=== PATIENT | female | born 1965 | race Caucasian/White ===

== ENCOUNTER 2020-05-30 10:45 | Emergency (ER) | payer BC, SELFPAY ==
[2020-05-30 10:51] VITALS: BP 163/100; PULSE 108; RESP 18; TEMP 37.1; O2SAT 98
[2020-05-30 11:02] VITALS: BP 138/90; PULSE 91; RESP 18; O2SAT 98
[2020-05-30 11:22] LABS: Alanine Aminotransferase 16 U/L (4-35); Albumin Level 4.6 g/dL (3.5-5.1); Alkaline Phosphatase 80 U/L (38-126); Aspartate Amino Transferase 26 U/L (14-36); Bilirubin,Total 0.7 mg/dL (0.2-1.3); Blood Urea Nitrogen 7 mg/dL (7-17); Calcium 9.6 mg/dL (8.4-10.2); Carbon Dioxide 28 mmol/L (22-30); Chloride 95 mmol/L (98-107); Estimated CRCL calculation 93 ml/min; Estimated Glomerular Filt Rate > 60; Glucose 124 mg/dL (65-105); Lipase 138 U/L (23-300); Potassium 3.8 mmol/L (3.4-5.0); Sodium 133 mmol/L (137-145)
[2020-05-30 11:24] LABS: Basophils Percent Auto 0.3 % (0.2-1.2); Eosinophils Absolute Auto 0.1 K/mm3 (0-0.3); Eosinophils Percent Auto 0.8 % (0-4.4); Hematocrit 40.2 % (37.0-47.0); Hemoglobin 14.2 g/dL (12.0-15.0); Immature Granulocyte Absolute 0.04 K/mm3 (0.00-0.031); Immature Granulocyte Percent A 0.3 % (0-0.5); Lymphocytes Absolute Auto 1.61 K/mm3 (0.9-3.2); Lymphocytes Percent Auto 13.5 % (18.3-44.2); Mean Corpuscular HGB Conc 35.3 g/dl (32-36); Mean Corpuscular Hemoglobin 32.6 pg (26-34); Mean Corpuscular Volume 92.4 fl (80-100); Mean Platelet Volume 9.8 fl (7.4-10.4); Monocytes Absolute Auto 0.9 K/mm3 (0.1-0.6); Monocytes Percent Auto 7.8 % (2.6-8.5); Neutrophils Absolute Auto 9.2 K/mm3 (1.3-6.7); Neutrophils Percent Auto 77.3 % (45.5-73.1); Platelet Count Result 289 k/mm3 (150-375); Red Blood Count 4.35 M/mm3 (4.2-5.4); Red Cell Distribution Width 11.1 % (11.5-14.5); White Blood Count 11.9 K/mm3 (4.5-10.0)
[2020-05-30] MEDS: LIDOCAINE HCL 2% VISC SOLN 15 ML UDC 20 ML PO (11:24)
[2020-05-30 11:25] LABS: Add Urine Microscopic? YES; Appearance Urine Clear (Clear); Bacteria Urine Trace /hpf; Bilirubin Urine Negative (Negative); Blood Urine 2+ (Negative); Color Urine Yellow (Yellow); Glucose Urine UA Negative (Negative); Ketones Urine 2+ mg/dL (Negative); Leukocyte Esterase Ur Trace LEU/UL (Negative); Mucus Urine Rare /lpf; Nitrate Urine Negative (Negative); Protein Urine Negative (Negative); Specific Grav Ur 1.015 (1.001-1.035); Squamous Epithelial Cell Urine Occasional /hpf (Few); Urobilinogen Urine Negative mg/dL (<2.0)
[2020-05-30] MEDS: MAG HYDROX/AL HYDROX/SIMETH 30 ML UDC PO (11:25)
[2020-05-30] MEDS: FAMOTIDINE 20 MG/2 ML VIAL IV PUSH (11:25)
[2020-05-30] MEDS: SODIUM CHLORIDE 0.9% IV 1,000 ML 999 ML IV CONT (11:25)
[2020-05-30] MEDS: ONDANSETRON INJ 4 MG/2 ML VIAL IV PUSH (11:25)
[2020-05-30 11:28] VITALS: BP 138/90; PULSE 94; RESP 18; O2SAT 98
--- NOTE | 2020-05-30 12:41 | ED.ABDPAIN ---
HPI - Abdominal Pain General Chief Complaint: Abdominal Pain <Landon Byod PA-C - Last Filed: 05/30/20 12:48> Stated Complaint: abd pain <Landon Boyd PA-C - Last Filed: 05/30/20 12:48> Time Seen by Provider: 05/30/20 10:47 <Landon Boyd PA-C - Last Filed: 05/30/20 12:48> Source: patient <Landon Boyd PA-C - Last Filed: 05/30/20 12:48> Mode of arrival: ambulatory <DAO Solano Last Filed: 05/30/20 12:48> Limitations: no limitations <Landon Boyd PA-C - Last Filed: 05/30/20 12:48> History of Present Illness HPI narrative: Patient is a 55-year-old female who presents to emergency department for evaluation of generalized abdominal pain that is been present for the last 7 days can started in the epigastrium and is now extended down into the remainder of the abdomen patient denies vomiting diarrhea rectal bleeding or melena. Patient in the room in no distress. <Landon Boyd PA-C - Last Filed: 05/30/20 12:48> Related Data Home Medications: Home Medications Medication Instructions Recorded Confirmed conj estrog-medroxyprogest darwin 1 tablet PO DAILY 05/30/20 [Prempro] <Landon Boyd PA-C - Last Filed: 05/30/20 12:48> Allergies/Adverse Reactions: Allergies Allergy/AdvReac Type Severity Reaction Status Date / Time No Known Allergies Allergy Unverified 07/25/17 07:59 <Landon Boyd PA-C - Last Filed: 05/30/20 12:48> Review of Systems Review of Systems: All systems reviewed & are unremarkable except as noted in HPI and below <Landon Boyd PA-C - Last Filed: 05/30/20 12:48> [facility] Social History Social History: Social History Smoking status: Never smoker Second hand tobacco smoke exposure: No Alcohol intake: current Gender identity (if verbalized by the patient): Female <DAO Solano Last Filed: 05/30/20 12:48> Exam Narrative: Exam Narrative: GENERAL: Well-appearing, well-nourished, and in no acute distress. HEAD: Normocephalic, atraumatic. EYES: PERRLA and EOMI. ENT: Nares clear, no rhinorrhea or epistaxis. Mucous membranes moist. CHEST: Clear to auscultation. No respiratory distress. No wheezes rales or rhonchi HEART: Regular rate and rhythm. No murmur heard. EXTREMITIES: Normal range of motion. No edema. SKIN: Warm, dry, no rash. NEURO: No focal deficits. Alert and oriented x3. PSYCH: Normal mood and affect. <DAO Solano Last Filed: 05/30/20 12:48> Course Course Emergency Course: Patient in the room in no distress aware of case findings treatment plan and diagnosis agreeing to follow-up as instructed with primary care and provided GI referral was given fluids and medications in the emergency department noting that her pain is much better at this time. <DAO Solano Last Filed: 05/30/20 12:48> Vital Signs Vital signs: Vital Signs Temperature 98.8 F 05/30/20 10:51 Pulse Rate 108 H 05/30/20 10:51 Respiratory Rate 18 05/30/20 10:51 Blood Pressure 163/100 H 05/30/20 10:51 Pulse Oximetry 98 05/30/20 10:51 Temperature 98.8 F 05/30/20 10:51 Pulse Rate 78 05/30/20 13:06 Respiratory Rate 18 05/30/20 13:06 Blood Pressure 133/75 05/30/20 13:06 Pulse Oximetry 100 05/30/20 13:06 <DAO Solano Last Filed: 05/30/20 12:48> Vital Signs Temperature 98.8 F 05/30/20 10:51 Pulse Rate 108 H 05/30/20 10:51 Respiratory Rate 18 05/30/20 10:51 Blood Pressure 163/100 H 05/30/20 10:51 Pulse Oximetry 98 05/30/20 10:51 Temperature 98.8 F 05/30/20 10:51 Pulse Rate 78 05/30/20 13:06 Respiratory Rate 18 05/30/20 13:06 Blood Pressure 133/75 05/30/20 13:06 Pulse Oximetry 100 05/30/20 13:06 <Tegan Pan MD - Last Filed: 05/30/20 17:16> MDM - Abdominal Pain MDM Narrative Medical decision making na
[2020-05-30 13:06] VITALS: BP 133/75; PULSE 78; RESP 18; O2SAT 100
== END 2020-05-30 13:06 | disposition home or self-care (01) ==
PROVIDERS: Emergency Provider General Practice; PCP Internal Medicine
DX: R10.84 Generalized abdominal pain (principal)
CPT/HCPCS: 36415; 80053; 81001; 81025; 83690; 85025; 96361; 96374; 96375; 99284; A9270; J0131; J2405; J7030

== ENCOUNTER → 2020-06-13 10:11 | Outpatient (CLI) | payer BC, SELFPAY ==
--- NOTE | ~2020-06-13 | US_ITS ---
US abdomen complete DATE: 06/13/2020 10:41 INDICATION: Epigastric and right upper quadrant abdominal pain TECHNIQUE: Real-time imaging of the complete abdomen. Doppler analysis. COMPARISON: None FINDINGS: Hepatic cysts measuring up to 9 mm and 13 mm are noted. Otherwise no hepatic or pancreatic space-occupying mass lesion is evident. Normal hepatic portal venous flow direction. There is sludge and there are up to 10 mm echogenic filling defects with shadowing in the gallbladder lumen, consistent with cholelithiasis. There is borderline gallbladder wall thickening. No perichole cystic fluid is evident. Negative sonographic Pham's sign. The common bile duct measures 4 mm, within normal range. No renal space occupying mass lesion or hydronephrosis is evident. Normal splenic size. Normal caliber of the abdominal aorta. The inferior vena cava is unremarkable. IMPRESSION: Cholelithiasis, gallbladder sludge Hepatic cysts Reviewed, dictated and finalized at Location A. Reviewed, dictated and finalized at location B.
== END ==
PROVIDERS: Visit Provider Internal Medicine
DX: R10.13 Epigastric pain (principal); K80.20 Calculus of gallbladder without cholecystitis without obstruction; K76.89 Other specified diseases of liver
CPT/HCPCS: 76700

== ENCOUNTER → 2021-03-09 14:46 | Outpatient (CLI) | payer BC, SELFPAY ==
--- NOTE | ~2021-03-09 | US_ITS ---
EXAMINATION: US transvaginal DATE: 03/09/2021 15:14 INDICATION: Postmenopausal bleeding TECHNIQUE: Multiple transabdominal and endovaginal sonographic images of the pelvis were obtained. COMPARISON: None. FINDINGS: The uterus measures 7.1 x 3.2 x 3.9 cm. The endometrial complex measures 3 mm in thickness but with heterogeneous echogenicity with several small echogenic foci at the fundus. 1.4 cm heterogeneously hy poechoic lesion at the fundus which could represent a uterine fibroid. The right ovary measures 1.5 x 1.1 x 1.0 cm. The left ovary measures 1.2 x 1.0 x 1.3 cm. There is normal vascular flow in the ovari es. There is no free fluid in the pelvis. IMPRESSION: 1. Endometrial complex normal in thickness measuring 3 mm but with heterogeneous appearance with shanta ral echogenic foci at the fundus. Given the heterogeneous appearance and provided history of postmeno pausal bleeding would consider hysteroscopy and endometrial biopsy for further evaluation. 2. 1.4 cm heterogeneously hypoechoic lesion at the uterine fundus most likely a uterine fibroid. Reviewed, dictated and finalized at location A. IMPRESSION: 1. Endometrial complex normal in thickness measuring 3 mm but with heterogeneou s appearance with several echogenic foci at the fundus. Given the heterogeneous appearance and provided history of postmenopausal bleeding would consider hyst eroscopy and endometrial biopsy for further evaluation. 2. 1.4 cm heterogeneously hypoechoic lesion at the uterine fundus most likely a uterine fibroid.
== END ==
PROVIDERS: Visit Provider Nurse Practitioner
DX: N95.0 Postmenopausal bleeding (principal)
CPT/HCPCS: 76830

== ENCOUNTER → 2021-05-03 12:10 | Outpatient (CLI) | payer BC, SELFPAY ==
--- NOTE | ~2021-05-03 | MM_ITS ---
EXAMINATION: MM screening [facility] BI w johana HISTORY: Screening mammogram TECHNIQUE: Craniocaudal and mediolateral oblique 3-D tomosynthesis images were obtained and synthetic 2-D images were generated. CAD analysis was submitted and interpreted. COMPARISON: 07/22/2019, 06/12/2018, 05/15/2017 bilateral digital screening mammogram examinations BREAST PARENCHYMAL COMPOSITION: There are scattered areas of fibroglandular density. FINDINGS: Right breast: There is asymmetry in the anterior inner mid right breast. Diagnostic right mammogram and right breas t ultrasound examination are recommended. Left breast: There is no evidence of suspicious mass, calcification, or architectural distortion to suggest malig jannet. There has been no suspicious interval change. IMPRESSION: 1. Right breast mammographic asymmetry 2. Diagnostic right mammogram and right breast ultrasound examination are recommended. BI-RADS Category 0: Incomplete: Needs additional imaging evaluation. Reviewed, dictated and finalized at location A. IMPRESSION: 1. Right breast mammographic asymmetry 2. Diagnostic right mammogram and right breast ultrasound examination are recom mended. BI-RADS Category 0: Incomplete: Needs additional imaging evaluation.
--- NOTE | ~2021-05-03 | DEXA_ITS ---
Bone Density Report Name: Julita Mckeon Age: 56 Sex: Female Ethnicity: White Date of : 1965 Indication: postmenopausal; screening for osteoporosis; parental hip fracture; height loss; Referring Provider: PRICILLA, OTIS Study: Bone densitometry was performed. Exam Date: May 03, 2021 Accession number: [id number] Bone Density: Region BMD T-score Z-score Classification AP Spine (L1-L4) 1.010 -0.3 0.7 Normal Femoral Neck (Left) 0.733 -1.0 0.0 Normal Total Hip (Left) 0.909 -0.3 0.4 Normal Femoral Neck (Right) 0.791 -0.5 0.5 Normal Total Hip (Right) 0.937 0.0 0.6 Normal Total Hip Mean 0.923 -0.2 0.5 Normal World Health Organization criteria for BMD impression classify patients as: Normal (T-score at or above -1.0), Osteopenia (T-score between -1.0 and -2.5), or Osteoporosis (T-score at or below -2.5). 10-year Fracture Risk: FRAX not reported because: All T-scores for Spine Total, Hip Total, Femoral Neck at or above -1.0 Treated for osteoporosis Clinical Information Provided by Patient: Parent has had a hip fracture Is being treated for osteoporosis Has used the following medications: HRT (i.e. estrogen/hormone therapy) Patient maximum height was 67.5 Menopause Age: 55 Drinks caffeinated beverages Onset of menses at age 15 Number of children 0 Impression: The patient has normal bone mass. The patient has risk factors, including: parental hip fracture. Discussion: It is important to ask patients whether they are taking their medications and to encourage continued and appropriate compliance with their osteoporosis therapies to reduce fracture risk. It is also important to review their risk factors and encourage appropriate calcium and vitamin D intakes, exercise, fall prevention and other lifestyle measures. Follow-Up: Consider a repeat BMD and Vertebral Fracture Assessment (VFA) exam in 2 years or sooner if medically necessary, to reassess this patient's status. Reported by: DONG on 05/03/2021 12:40:00 PM. Reviewed, dictated and finalized at location AMyrna GARCIA
== END ==
PROVIDERS: Visit Provider Nurse Practitioner
DX: Z12.31 Encounter for screening mammogram for malignant neoplasm of breast (principal); Z78.0 Asymptomatic menopausal state; R92.8 Other abnormal and inconclusive findings on diagnostic imaging of breast
CPT/HCPCS: 77063; 77067; 77080

== ENCOUNTER → 2021-06-01 09:17 | Outpatient (CLI) | payer BC, SELFPAY ==
--- NOTE | ~2021-06-01 | MMUS_ITS ---
EXAMINATION: MM diagnostic mammo unilat RT, US breast RT limited HISTORY: Follow-up right breast asymmetries TECHNIQUE: Additional 3-D tomosynthesis images of the right breast were performed and synthetic 2-D i mages were generated. CAD analysis was submitted and interpreted. High resolution Limited right breas t ultrasound was performed. COMPARISON: 05/03/2021 BREAST PARENCHYMAL COMPOSITION: Breast composed of scattered areas of fibroglandular density. FINDINGS: MAMMOGRAPHIC FINDINGS: No discrete mass, architectural distortion or suspicious calcifications are identified with spot comp ression or mediolateral views. ULTRASOUND: Limited right periareolar ultrasound: Normal heterogeneous echotexture without focal solid or cystic mass. There are mildly prominent ducts. IMPRESSION: 1. No evidence for malignancy in the right breast. 2. Routine yearly screening mammogram and regular clinical breast examination are recommended. BI-RADS Category 1: Negative Reviewed, dictated and finalized at location A. IMPRESSION: 1. No evidence for malignancy in the right breast. 2. Routine yearly screening mammogram and regular clinical breast examination a re recommended. BI-RADS Category 1: Negative
== END ==
PROVIDERS: Visit Provider Obstetrics & Gynecology Gynecology
DX: R92.8 Other abnormal and inconclusive findings on diagnostic imaging of breast (principal)
CPT/HCPCS: 76642; 77065

== ENCOUNTER 2022-06-20 09:43 | Outpatient (CLI) | payer BC, SELFPAY ==
[2022-06-20 19:56] LABS: Alanine Aminotransferase 19 U/L (6-35); Albumin Level 4.5 g/dL (3.5-5.1); Alkaline Phosphatase 82 U/L (38-126); Anion Gap 10 mmol/L (8-16); Aspartate Amino Transferase 40 U/L (14-36); Bilirubin,Total 0.5 mg/dL (0.2-1.3); Blood Urea Nitrogen 12 mg/dL (7-17); Calcium 9.8 mg/dL (8.4-10.2); Carbon Dioxide 29 mmol/L (22-30); Chloride 99 mmol/L (98-107); Cholesterol 218 mg/dL (0-200); Estimated Glomerular Filt Rate > 60; Glucose 95 mg/dL (65-110); HDL Direct 77 mg/dL; Sodium 138 mmol/L (137-145); Triglycerides 71 mg/dL (<150)
[2022-06-20 20:07] LABS: LDL Cholesterol Direct 98 mg/dL
== END 2022-06-20 09:44 | disposition home or self-care (01) ==
LOC: ANHGOSHLAB 09:46
PROVIDERS: PCP Family Medicine; Visit Provider Family Medicine
DX: Z13.29 Encounter for screening for other suspected endocrine disorder (principal); Z13.220 Encounter for screening for lipoid disorders; I10 Essential (primary) hypertension
CPT/HCPCS: 36415; 80053; 80061; 84443

== ENCOUNTER → 2023-02-25 15:38 | Outpatient (CLI) | payer BC, SELFPAY ==
--- NOTE | ~2023-02-25 | XR_ITS ---
XR knee LT min 4V 02/25/2023 15:55 Indication: Left knee pain Procedure: 4 views left knee Comparison: No prior studies for comparison. Findings: There is anatomic alignment. Mild osteoarthritis. No fracture, subluxation or dislocation. No significant joint effusion. Impression: 1: Mild osteoarthritis of the left knee. Reviewed, dictated and finalized at location A. Impression: 1: Mild osteoarthritis of the left knee.
== END ==
PROVIDERS: PCP Family Medicine; Visit Provider Family Medicine
DX: M25.562 Pain in left knee (principal); M17.12 Unilateral primary osteoarthritis, left knee
CPT/HCPCS: 73564

== ENCOUNTER → 2023-05-28 14:48 | Outpatient (CLI) | payer BC, SELFPAY ==
--- NOTE | ~2023-05-28 | MM_ITS ---
EXAMINATION: MM screening [facility] BI w johana HISTORY: Screening TECHNIQUE: Craniocaudal and mediolateral oblique 3-D tomosynthesis images were obtained and synthetic 2-D images were generated. CAD analysis was submitted and interpreted. COMPARISON: Comparison to multiple prior studies sequentially, with oldest reviewed study dated 04/25. BREAST PARENCHYMAL COMPOSITION: Breast composed of scattered areas of fibroglandular density FINDINGS: There is no evidence of suspicious mass, calcification, or architectural distortion to sugg est malignancy in either breast. There has been no suspicious interval change. IMPRESSION: 1. No mammographic evidence of malignancy. 2. Recommend routine screening mammography in one year. BI-RADS Category 1: Negative Reviewed, dictated and finalized at location A.
== END ==
PROVIDERS: PCP Obstetrics & Gynecology Gynecology; Visit Provider Obstetrics & Gynecology Gynecology
DX: Z12.31 Encounter for screening mammogram for malignant neoplasm of breast (principal)
CPT/HCPCS: 77063; 77067

== ENCOUNTER 2023-07-11 10:38 | Outpatient (CLI) | payer BC, SELFPAY ==
[2023-07-11 19:50] LABS: Alanine Aminotransferase 24 U/L (6-35); Albumin Level 4.5 g/dL (3.5-5.1); Alkaline Phosphatase 88 U/L (38-126); Anion Gap 10 mmol/L (8-16); Aspartate Amino Transferase 41 U/L (14-36); Bilirubin,Total 0.7 mg/dL (0.2-1.3); Blood Urea Nitrogen 11 mg/dL (7-17); Calcium 9.7 mg/dL (8.4-10.2); Carbon Dioxide 30 mmol/L (22-30); Chloride 100 mmol/L (98-107); Cholesterol 233 mg/dL (0-200); Estimated Glomerular Filt Rate > 60; Glucose 97 mg/dL (65-110); HDL Direct 78 mg/dL; Potassium 4.2 mmol/L (3.4-5.0); Sodium 140 mmol/L (137-145); Triglycerides 80 mg/dL (<150)
[2023-07-11 20:00] LABS: LDL Cholesterol Direct 118 mg/dL
== END 2023-07-11 10:39 | disposition home or self-care (01) ==
LOC: ANHGOSHLAB 10:40
PROVIDERS: PCP Family Medicine; Visit Provider Family Medicine
DX: Z13.228 Encounter for screening for other metabolic disorders (principal); Z13.220 Encounter for screening for lipoid disorders; Z00.00 Encounter for general adult medical examination without abnormal findings
CPT/HCPCS: 36415; 80053; 80061

== ENCOUNTER 2024-07-17 09:43 | Outpatient (CLI) | payer BC, SELFPAY ==
[2024-07-17 15:07] LABS: Alanine Aminotransferase 24 U/L (6-35); Albumin Level 4.5 g/dL (3.5-5.1); Alkaline Phosphatase 86 U/L (38-126); Anion Gap 8 mmol/L (4-12); Aspartate Amino Transferase 49 U/L (14-36); Bilirubin,Total 0.6 mg/dL (0.2-1.3); Blood Urea Nitrogen 15 mg/dL (7-17); Calcium 9.4 mg/dL (8.4-10.2); Carbon Dioxide 31 mmol/L (22-30); Chloride 100 mmol/L (98-107); Cholesterol 208 mg/dL (0-200); Estimated Glomerular Filt Rate > 60; Glucose 101 mg/dL (65-110); HDL Direct 65 mg/dL; Potassium 4.7 mmol/L (3.4-5.0); Sodium 139 mmol/L (137-145); Triglycerides 78 mg/dL (<150)
[2024-07-17 15:17] LABS: LDL Cholesterol Direct 107 mg/dL
== END 2024-07-17 09:44 | disposition home or self-care (01) ==
LOC: ANHGOSHLAB 09:45
PROVIDERS: PCP Family Medicine; Visit Provider Family Medicine
DX: Z00.00 Encounter for general adult medical examination without abnormal findings (principal); E78.5 Hyperlipidemia, unspecified; Z13.228 Encounter for screening for other metabolic disorders; Z13.29 Encounter for screening for other suspected endocrine disorder
CPT/HCPCS: 36415; 80053; 80061; 84443

== ENCOUNTER 2024-10-30 14:51 | Outpatient (CLI) | payer BC, SELFPAY ==
--- NOTE | ~2024-10-30 | MM_ITS ---
EXAMINATION: MM screening [facility] BI w johana HISTORY: Screening TECHNIQUE: Craniocaudal and mediolateral oblique 3-D tomosynthesis images were obtained and synthetic 2-D images were generated. CAD analysis was submitted and interpreted. COMPARISON: Comparison to multiple prior studies sequentially, with oldest reviewed study dated 03/2017. BREAST PARENCHYMAL COMPOSITION: Not dense: There are scattered areas of fibroglandular density. FINDINGS: There is no evidence of suspicious mass, calcification, or architectural distortion to sugg est malignancy in either breast. There has been no suspicious interval change. IMPRESSION: 1. No mammographic evidence of malignancy. 2. Recommend routine screening mammography in one year. BI-RADS Category 1: Negative Reviewed, dictated and finalized at location B. IFIED OPHTHALMIC ASSISTANT
== END 2024-10-30 14:52 | disposition home or self-care (01) ==
LOC: MICIMG 14:52
PROVIDERS: PCP Family Medicine; Visit Provider Obstetrics & Gynecology Gynecology
DX: Z12.31 Encounter for screening mammogram for malignant neoplasm of breast (principal)
CPT/HCPCS: 77063; 77067

== ENCOUNTER 2025-01-19 10:04 | Outpatient (CLI) | payer OTHER, SELFPAY ==
[2025-01-19 13:30] LABS: Basophils Percent Auto 0.8 % (0.2-1.2); Eosinophils Absolute Auto 0.2 K/mm3 (0-0.3); Eosinophils Percent Auto 4.3 % (0-4.4); Hematocrit 42.3 % (37.0-47.0); Hemoglobin 13.9 g/dL (12.0-15.0); Immature Granulocyte Absolute 0.01 K/mm3 (0.00-0.031); Immature Granulocyte Percent A 0.3 % (0-0.5); Lymphocytes Absolute Auto 1.71 K/mm3 (0.9-3.2); Lymphocytes Percent Auto 46.2 % (18.3-44.2); Mean Corpuscular HGB Conc 32.9 g/dl (32-36); Mean Corpuscular Hemoglobin 31.7 pg (26-34); Mean Corpuscular Volume 96.4 fl (80-100); Mean Platelet Volume 10.4 fl (7.4-10.4); Monocytes Absolute Auto 0.3 K/mm3 (0.1-0.6); Monocytes Percent Auto 8.9 % (2.6-8.5); Neutrophils Absolute Auto 1.5 K/mm3 (1.3-6.7); Neutrophils Percent Auto 39.5 % (45.5-73.1); Platelet Count Result 254 k/mm3 (150-375); Red Blood Count 4.39 M/mm3 (4.2-5.4); Red Cell Distribution Width 12.1 % (11.5-14.5); White Blood Count 3.7 K/mm3 (4.5-10.0)
[2025-01-19 14:03] LABS: Alanine Aminotransferase 32 U/L (6-35); Albumin Level 4.7 g/dL (3.5-5.1); Alkaline Phosphatase 74 U/L (38-126); Anion Gap 13 mmol/L (4-12); Aspartate Amino Transferase 50 U/L (14-36); Bilirubin,Total 0.8 mg/dL (0.2-1.3); Blood Urea Nitrogen 13 mg/dL (7-17); Calcium 9.7 mg/dL (8.4-10.2); Carbon Dioxide 28 mmol/L (22-30); Chloride 101 mmol/L (98-107); Estimated Glomerular Filt Rate > 60; Glucose 92 mg/dL (65-110); Potassium 4.3 mmol/L (3.4-5.0); Sodium 142 mmol/L (137-145)
[2025-01-19 14:15] LABS: Iron 171 ug/dL (37-170)
[2025-01-19 14:24] LABS: Percent Iron Saturation 59 % (20-50)
[2025-01-19 15:23] LABS: Hepatitis C Virus Antibody Negative (Negative)
[2025-01-22 12:48] LABS: Lipoprotein A 366 nmol/L
== END 2025-01-19 10:05 | disposition home or self-care (01) ==
LOC: ANHGOSHLAB 10:05
PROVIDERS: PCP Internal Medicine; Visit Provider Internal Medicine
DX: D72.829 Elevated white blood cell count, unspecified (principal); R74.8 Abnormal levels of other serum enzymes; I10 Essential (primary) hypertension; Z82.49 Family history of ischemic heart disease and other diseases of the circulatory system
CPT/HCPCS: 36415; 80053; 82172; 82728; 83540; 83550; 83695; 85025; 86803

== ENCOUNTER 2025-02-23 08:53 | Outpatient (CLI) | payer OTHER, SELFPAY ==
--- OUTSIDE RECORDS SUMMARY | 2025-02-23 09:17 | XMS_ITS | Clinical Summary ---
Author Organization [facility] Address [address] [address] Care Team Providers Care [employer] Glazer Name Role Phone Ja Lombardo MD Primary Care Provider [phone] Source Comments [facility],non-owned Affiliates and Associated Physician Practices is amultiple site organization consisting of ambulatory clinics and hospital sitesin [place], [place], [place] and [place]. This disclosure is being madepursuant to the Care Everywhere program and may not contain all information available regarding this patient. Last updated 18.[facility] Allergies No known active allergies Medications * Be aware that medications may not be up to date on this document. Alwaysverify current medications with the patient. No known medications Immunizations Immunization Administration Dates Next Due INFLUENZA VACCINE, QUADR. (F LUZONE; FLULAVAL; FLUARIX; AFLURIA QUADRIVALENT; 6MO+), 0.5 ML (IIV4) 07/17/2017 iNFLUENZA VACCINE, RECOM-ELLIS, QUADR. (FLUBLOCK QUADRIVALENT; 18Y+) (RIV4) 09/03/2018 Social History Tobacco Use Types Packs/Day Years Used Date Smoking Tobacco: Never Assessed Comments Unknown Sex and Gender Information Value Date Recorded Sex Assigned at Not on file Legal Sex Female 11:56 AM CDT Gender Identity Not on file Sexual Orientation Not on file Plan of Treatment Health Maintenance Due Date Last Done Comments COLOGUARD (AGES 45-75) - COL ON CA SCREENING 1965 COLON MONITORING 1967 COLONOSCOPY - COLON CA SCREENING 1967 CT COLONOGRAPHY - COLON CA SCREENING 1967 Colorectal Cancer Screening 1967 FIT - COLON CA SCREENING 1967 FLEX SIG - COLON CA SCREENING 1967 LIPID TESTING 1965 MAMMOGRAM 1965 PAP SMEAR 1967 HIV SCREENING 1982 HEPATITIS C SCREENING 03/25/1985 DTAP/TDAP/TD VACCINES (1 - Tdap) 1986 HEPATITIS B VACCINE (1 of 3 - 19+ 3-dose series) 1986 PNEUMOCOCCAL VACCINE 50+ (1 of 1 - PCV) 2017 ZOSTER VACCINE (1 of 2) 2017 COVID-19 VACCINE (1 - 2023-2 5 season) 2024 DEPRESSION SCREENING 11/11/2024 INFLUENZA VACCINE (Season Ended) 2025 09/03/2018, 07/17/2017 HIB VACCINE Aged Out No longer eligi ble based on patient's age to complete this topic HPV VACCINE Aged Out No longer eligi ble based on patient's age to complete this topic MENINGOCOCCAL (Group B) VACCINE SHARED DECISION-MAKING Aged Out No longer eligible based on patient's age to complete this topic MENINGOCOCCAL GROUPS A/C/Y/W VACCINE Aged Out No longer eligible b ased on patient's age to complete this topic PNEUMOCOCCAL VACCINE Aged Out No long er eligible based on patient's age [place] [address] ANTH Care Teams [employer] Relationship Specialty Start Date End Date Ja Lombardo MD [address] [place] [address] PCP - General Internal Medicine 07/17/17
[2025-02-23 11:19] LABS: Basophils Percent Auto 0.7 % (0.2-1.2); Eosinophils Absolute Auto 0.1 K/mm3 (0-0.3); Eosinophils Percent Auto 3.4 % (0-4.4); Hematocrit 40.7 % (37.0-47.0); Hemoglobin 13.3 g/dL (12.0-15.0); Immature Granulocyte Absolute 0.01 K/mm3 (0.00-0.031); Immature Granulocyte Percent A 0.2 % (0-0.5); Lymphocytes Percent Auto 58.3 % (18.3-44.2); Mean Corpuscular HGB Conc 32.7 g/dl (32-36); Mean Corpuscular Hemoglobin 31.4 pg (26-34); Mean Corpuscular Volume 96.2 fl (80-100); Mean Platelet Volume 10.3 fl (7.4-10.4); Monocytes Absolute Auto 0.4 K/mm3 (0.1-0.6); Monocytes Percent Auto 9.5 % (2.6-8.5); Neutrophils Absolute Auto 1.2 K/mm3 (1.3-6.7); Neutrophils Percent Auto 27.9 % (45.5-73.1); Platelet Count Result 233 k/mm3 (150-375); Red Blood Count 4.23 M/mm3 (4.2-5.4); Red Cell Distribution Width 11.8 % (11.5-14.5); White Blood Count 4.1 K/mm3 (4.5-10.0)
[2025-02-23 12:16] LABS: Platelet Estimate Adequate (Adequate); Schistocytes None Seen
== END 2025-02-23 08:54 | disposition home or self-care (01) ==
LOC: ANHGOSHLAB 08:54
PROVIDERS: PCP Internal Medicine; Visit Provider Internal Medicine
DX: D72.829 Elevated white blood cell count, unspecified (principal)
CPT/HCPCS: 36415; 85025

== ENCOUNTER 2025-03-15 11:08 | Outpatient (CLI) | payer OTHER, SELFPAY ==
--- OUTSIDE RECORDS SUMMARY | 2025-03-15 12:03 | XMS_ITS | Clinical Summary ---
Author Organization [facility] Address [address] [place] [address] Care Team Providers Care [employer] D[employer]ge [employer] Barge Name Role Phone Ja Lombardo MD Primary Care Provider Source Comments [facility],non-owned Affiliates and Associated Physician Practices is amultiple site organization consisting of ambulatory clinics and hospital sitesin [place], [place], [place] and [place]. This disclosure is being madepursuant to the Care Everywhere program and may not contain all information available regarding this patient. Last updated 18.[facility] Allergies No known active allergies Medications * [...] patient's age to [place] [address] ANTH SELF PAY NO INSURANCE Member Subscriber Plan / Payer (Ef fective for All Dates) Name:Julita Mckeon Member ID:Not on file Relation to Subscriber:Not on file Name:JULITA MCKEON Subscriber ID:Not on file (Home) Address: [address] [place] [address] [place] [address] Payer ID:Not on file Group ID:Not on file Type:Self Pay Address: [place], [place] [employer] [facility] Address: [facility] [id number] [place] [id number] Care Teams [employer]ge Relationship Specialty Start Date End Date Ja Lombardo MD [address] [place] [address] PCP - General Internal Medicine 07/17/17
[2025-03-15 12:32] LABS: Basophils Percent Auto 0.8 % (0.2-1.2); Eosinophils Absolute Auto 0.1 K/mm3 (0-0.3); Eosinophils Percent Auto 2.3 % (0-4.4); Hematocrit 42.4 % (37.0-47.0); Hemoglobin 14.1 g/dL (12.0-15.0); Immature Granulocyte Absolute 0.01 K/mm3 (0.00-0.031); Immature Granulocyte Percent A 0.3 % (0-0.5); Lymphocytes Absolute Auto 1.58 K/mm3 (0.9-3.2); Lymphocytes Percent Auto 40.3 % (18.3-44.2); Mean Corpuscular HGB Conc 33.3 g/dl (32-36); Mean Corpuscular Hemoglobin 31.6 pg (26-34); Mean Corpuscular Volume 95.1 fl (80-100); Monocytes Absolute Auto 0.3 K/mm3 (0.1-0.6); Monocytes Percent Auto 7.9 % (2.6-8.5); Neutrophils Absolute Auto 1.9 K/mm3 (1.3-6.7); Neutrophils Percent Auto 48.4 % (45.5-73.1); Platelet Count Result 265 k/mm3 (150-375); Red Blood Count 4.46 M/mm3 (4.2-5.4); Red Cell Distribution Width 11.8 % (11.5-14.5); White Blood Count 3.9 K/mm3 (4.5-10.0)
[2025-03-15 12:55] LABS: Alanine Aminotransferase 25 U/L (6-35); Albumin Level 4.7 g/dL (3.5-5.1); Alkaline Phosphatase 92 U/L (38-126); Aspartate Amino Transferase 40 U/L (14-36); Bilirubin,Total 0.6 mg/dL (0.2-1.3)
[2025-03-15 13:57] LABS: Vitamin D 25 Hydroxy 25.4 ng/mL
== END 2025-03-15 11:09 | disposition home or self-care (01) ==
LOC: ANHGOSHLAB 11:10
PROVIDERS: PCP Internal Medicine; Visit Provider Internal Medicine
DX: R74.8 Abnormal levels of other serum enzymes (principal); D72.819 Decreased white blood cell count, unspecified; E55.9 Vitamin D deficiency, unspecified
CPT/HCPCS: 36415; 80076; 81256; 82306; 85025

== ENCOUNTER 2025-04-01 10:52 | Outpatient (CLI) | payer OTHER, SELFPAY ==
--- NOTE | ~2025-04-01 | DEXA_ITS ---
Bone Density Report Name: KENIA PAINTER Age: 60 Sex: Female Ethnicity: White Date of : 1965 Indication: postmenopausal; screening for osteoporosis; parental hip fracture; height loss; Referring Provider: BELLA ZUÑIGA Study: Bone densitometry was performed. Exam Date: April 01, 2025 Accession number: [id number] Bone Density: Region BMD T-score Z-score Classification AP Spine(L1-L4) 0.835 -1.9 -0.6 Osteopenia Femoral Neck (Left) 0.643 -1.9 -0.7 Osteopenia Total Hip (Left) 0.791 -1.2 -0.4 Osteopenia Femoral Neck (Right) 0.671 -1.6 -0.4 Osteopenia Total Hip (Right) 0.843 -0.8 0.0 Normal Total Hip Mean 0.817 -1.0 -0.2 Normal World Health Organization criteria for BMD impression classify patients as: Normal (T-score at or above -1.0), Osteopenia (T-score between -1.0 and -2.5), or Osteoporosis (T-score at or below -2.5). 10-year Fracture Risk(1): Major Osteoporotic Fracture 16% Hip Fracture 0.9% Reported Risk Factors: [place] (), Neck BMD=0.643, BMI=26.8, parental fracture (1) FRAX(R) Version 3.08. Fracture probability calculated for an untreated patient. Fracture probability may be lower if the patient has received treatment. Clinical Information Provided by Patient: Parent has had a hip fracture Has used the following medications: Vitamin D Patient maximum height was 67.0 Menopause Age: 55 Drinks caffeinated beverages Onset of menses at age 15 Number of children 0 Impression: The patient has low bone mass, based on the Total Spine T-score. The patient has an estimated ten-year risk of hip fracture of 0.9% and an estimated ten-year risk of major fracture of 16%, based on the WHO FRAX algorithm. The patient has risk factors, including: parental hip fracture. Discussion: BONE DENSITY IS LOW AT ONE OR MORE SKELETAL SITES. This patient's lowest T-score is low at one or more skeletal sites. It meets the World Health Organization's (WHO) criteria for ?low bone mass? (T-score between -1.0 and -2.5). The patient's 10-year risk of fracture as calculated by FRAX is less than the threshold where pharmacological therapy is recommended by the National Osteoporosis Foundation (NOF). However, all treatment decisions require clinical judgment and consideration of individual patient factors, including patient preferences, comorbidities, previous drug use, risk factors not captured in the FRAX model (e.g., frailty, falls, vitamin D deficiency, increased bone turnover, interval significant decline in bone density) and possible under or overestimation of fracture risk by FRAX. The patient should follow a healthful lifestyle (good nutrition with adequate calcium and vitamin D, and appropriate weight-bearing exercise). Follow-Up: Consider repeating this study in 2 to 3 years to reassess this patient's status, or sooner if there is some new clinical indication. Reported by: DERRICK on 04/01/2025 11:31:00 AM. Reviewed, dictated and finalized at location A.
--- OUTSIDE RECORDS SUMMARY | 2025-04-01 10:59 | XMS_ITS | Clinical Summary ---
Author Organization [facility] Address [address] [place] [address] Care Team Providers Care Typewriters Functional Tester Name Role Phone Ja Lombardo MD Primary Care Provider Source Comments [facility],non-owned Affiliates and Associated Physician Practices is amultiple site organization consisting of ambulatory clinics and hospital sitesin [place], [place], [place] and [place]. This disclosure is being madepursuant to the Care Everywhere program and may not contain all information available regarding this patient. Last updated 18.[facility] Allergies No known active allergies Medications * [...] patient's age to complete [place] [address] ANTH [facility] Address: [facility] [id number] [place] [address] SELF PAY NO INSURANCE Member Subscriber Plan / Payer (Ef fective for All Dates) Name:Julita Mckeon Member ID:Not on file Relation to Subscriber:Not on file Name:JULITA MCKEON Subscriber ID:Not on file (Home) Address: [address] [place] [address] [place] [address] Payer ID:Not on file Group ID:Not on file Type:Self Pay Address: [place], [place] [employer] Care Teams Typewriters Functional Tester Relationship Specialty Start Date End Date Ja Lombardo MD [address] [place] [address] PCP - General Internal Medicine 07/17/17
== END 2025-04-01 10:53 | disposition home or self-care (01) ==
LOC: ANHIMG 10:57
PROVIDERS: PCP Internal Medicine; Visit Provider Obstetrics & Gynecology Gynecology
DX: Z78.0 Asymptomatic menopausal state (principal); M85.88 Other specified disorders of bone density and structure, other site; M85.852 Other specified disorders of bone density and structure, left thigh; M85.851 Other specified disorders of bone density and structure, right thigh
CPT/HCPCS: 77080

== ENCOUNTER 2025-08-16 09:15 | Outpatient (CLI) | payer OTHER, SELFPAY ==
[2025-08-16 09:31] LABS: Hematocrit 41.0 % (37.0-47.0); Hemoglobin 13.5 g/dL (12.0-15.0); Immature Granulocyte Percent A 0.2 % (0-0.5); Lymphocytes Absolute Auto 1.76 K/mm3 (0.9-3.2); Mean Corpuscular HGB Conc 32.9 g/dl (32-36); Mean Corpuscular Hemoglobin 31.3 pg (26-34); Mean Corpuscular Volume 94.9 fl (80-100); Nucleated Red Blood Cells Absolute Auto 0.000 K/mm3 (0.0-0.012); Nucleated Red Blood Cells Perc 0.0 % (0.0-0.2); Platelet Count Result 234 k/mm3 (150-375); Red Blood Count 4.32 M/mm3 (4.2-5.4); White Blood Count 4.6 K/mm3 (4.5-10.0)
--- OUTSIDE RECORDS SUMMARY | 2025-08-16 10:00 | XMS_ITS | Clinical Summary ---
Author Organization [facility] Josie russell Rhea Address [address] [place] [address] Care Team Providers Care Wildlife Ecology Professor Name Role Phone Unavailable Primary Care Provider Unavailabl e Allergies No known active allergies Medications amLODIPine (NORVASC) 5 mg tablet Take 5 mg by mouth daily. 5 Active lisinopriL (PRINIVIL) 20 mg tablet Take 20 mg by mouth daily. 5 Active Climara Pro 0.045-0.015 mg/24 hr patch APPLY 1 PATCH TOPICALLY TO THE SKIN WEEKLY DIRECTED 5 Active Active Problems No known active problems Encounters Date Type Department Care Team Description 08/13/2025 Abstract [facility] Oncology and Hematology [facility] [address] [place] [address] Enoch Roy MD 08/11/2025 3:00 PM CDT Office Visit [facility] Oncology and Hematology [facility] [address] [place] [address] Enoch Roy MD Hereditary hemochromatosis (Primary Dx); Leukopenia, unspecified type from Last 3 Months Family History Medical History Relation Name Comments No Known Problems Brother 1 No Known Problems Brother 2 Heart Disease Father Cervical Cancer Mother No Known Problems Sister 1 No Known Problems Sister 2 Thyroid Cancer Sister 3 No Known Problems Sister 4 Relation Name Status Comments Brother 1 Alive Brother 2 Alive Father Mother Alive Sister 1 Alive Sister 2 Alive Sister 3 Alive Sister 4 Alive Social History Tobacco Use Types Packs/Day Years Used Date Smoking Tobacco: Never Smokeless Tobacco: Never Tobacco Cessation:Counseling Given: Not Answered Alcohol Use Standard Drinks/Week Comments Yes 0 (1 standard drink = 0.6 oz pur e alcohol) Occasionally Comments Unknown Sex and Gender Information Value Date Recorded Sex Assigned at Not on file Legal Sex Female 2:27 PM CDT Gender Identity Not on file Sexual Orientation Not on file Last Filed Vital Signs Vital Sign Reading Time Taken Comments Blood Pressure 125/82 08/11/2025 2:48 PM CDT Pulse 80 08/11/2025 2:48 PM CDT Temperature 36.4 C (97.6 F) 08/11/2025 2:48 PM CDT Respiratory Rate 14 08/11/2025 2:48 PM CDT Oxygen Saturation 98% 08/11/2025 2:48 PM CDT Inhaled Oxygen Concentration - - Weight 76.3 kg (168 lb 3.2 oz) 08/11/2025 2:48 P M CDT Height 170.2 cm (5' 7) 08/11/2025 2:48 PM CDT Body Mass Index 26.34 08/11/2025 2:48 PM CDT Plan of Treatment Upcoming Encounters Date Type Department Care Team (Late st Contact Info) Description 08/25/2025 4:35 PM CDT Telephone Check Up [facility] Oncology and Hematology - [place] [address] [facility] [address] [place] [address] Enoch Roy MD [address] [facility] [address] [place] [address] Health Maintenance Due Date Last Done Comments Pre-Diabetes and Diabetes Screening 1967 DTAP/TDAP/TD VACCINES (1 - Tdap) 1986 HEPATITIS B VACCINES (1 of 3 - 19+ 3-dose series) 1986 HPV/Cotest (21-29) 1988 CERVICAL CANCER SCREENING 1997 HPV/Cotest (30-65) 1997 PAP SMEAR 1997 BREAST CANCER SCREENING 2007 COLORECTAL SCREENING 2012 Colorectal Cancer Screening 2012 FIT-DNA Q 3 years 2012 FIT/FOBT Q 1 year 2012 Flex Sig/CT Colonography Q 5 years 2012 ZOSTER VACCINE (1 of 2) 2017 Preventative Visit- Commercial 11/11/2024 INFLUENZA VACCINE (#1) 2025 09/03/2018, 2016 Insurance [facility] OPEN ACCESS HMO
--- OUTSIDE RECORDS SUMMARY | 2025-08-16 10:00 | XMS_ITS | Clinical Summary ---
Author Organization [facility] Address [facility] [place] [address] Care Team Providers Care Crusher Loader Equipment Operator Name Role Phone Jorden Ghosh DO Primary Care Provider [phone] Encounters Date Type Department Care Team Description 08/04/2025 9:04 AM CDT - 08/04/2025 11:59 PM CDT Hospital Encounter [address] [address] Disorder of iron metabolism, unspecified; Abnormal levels of other serum enzymes Discharge Disposition: Discharge to home or self care from Last 3 Months Social History Tobacco Use Types Packs/Day Years Used Date Smoking Tobacco: Never Assessed Comments Unknown Sex and Gender Information Value Date Recorded Sex Assigned at Not on file Legal Sex Female 4:16 PM CDT Gender Identity Not on file Sexual Orientation Not on file Plan of Treatment Health Maintenance Due Date Last Done Comments Breast Cancer Screening-Mammogram 1967 Cervical Cancer Screening 1967 Colon Cancer Screening-Colonoscopy 1967 Depression Screening 1967 Hepatitis C Screening 1967 DTaP/Tdap/Td Vaccine (1 - Tdap) 1978 Hepatitis B Screening 1985 Regular Well Visit/Exam 18-64 1985 Zoster Vaccine (1 of 2) 2017 Influenza Vaccine (#1) 2025 4, 09/03/2018, 07/17/2017 Pneumococcal vaccine <65 Aged Out No longer eligible based on patient's age to complete this topic Procedures Procedure Name Priority Date/Time Associated Diagnosis Comments US RUQ Schedule Routine, Read Routine (OP Routine) 08/04/2025 10:57 AM CDT Disorder of iron metabolism, unspecified Abnormal levels of other serum enzymes from Last 3 Months Results * US RUQ (08/04/2025 10:57 AM CDT) Anatomical Region Laterality Modality Abdomen N/A Ultrasound 08/06/2025 10:1 8 AM CDT Narrative 08/06/2025 10:20 AM CDT EXAM DESCRIPTION: US RUQ REASON FOR STUDY: r74.8 Elevated LFTs for 2 years. TECHNIQUE: Ultrasound of the right upper quadrant of the abdomen was performed with grayscale and color doppler. COMPARISON: None FINDINGS: PANCREAS: Visualized portions of the pancreas are within normal limits. Portions of the pancreatic body and tail are obscured due to bowel gas. LIVER: The liver is grossly normal in echogenicity. There is a complicated cyst in the right hepatic lobe measuring 2.3 x 1.7 x 1.5 cm containing a thick septation, and therefore incompletely characterized by the current study. There is simple appearing cysts noted in the left hepatic lobe measuring 1.0 x 1.0 x 0.9 cm. There is documentation of hepatopetal flow in the portal vein. GALLBLADDER: There is cholelithiasis and gallbladder sludge. The gallbladder wall measures 0.2 cm in thickness. There is no definite sonographic evidence of pericholecystic fluid. BILIARY: There is no intrahepatic or extrahepatic biliary ductal dilatation. Common bile duct measures 0.4 cm in diameter. RIGHT KIDNEY: Normal size. Normal echogenicity. No solid mass or cyst. No hydronephrosis. Measures 10.5 x 4.6 x 4.4 cm. OTHER: No other significant findings. IMPRESSION: 1. Cholelithiasis and gallbladder sludge without definite sonographic evidence of cholecystitis. 2. Complicated cyst in the right hepatic lobe measuring up to 2.3 cm containing a thick septation, and therefore incompletely characterized by the current study. Further evaluation with MRI with liver protocol is recommended as clinically indicated. THIS IS AN ELECTRONICALLY VERIFIED FINAL REPORT 08/06/2025 10:20 AM - Electronically signed by Yamila Gutierrez D.O. PS T: Report ID: [id number] Reading Location: [id number] Procedure Note Yamila Gutierrez DO - 08/06/2025 EXAM DESCRIPTION: US RUQ REASON FOR STUDY: r74.8 Elevated LFTs for 2 years. TECHNIQUE: Ultrasound of the right upper quadrant of the abdomen wasperformed with grayscale and color doppler. COMPARISON: None FINDINGS: PANCREAS: Visualized portions of the pancreas are withinnormal limits. Portions of the pancreatic body and tail are obscured due to bowel gas. LIVER: The liver is grossly normal in echogenicity. There is acomplicated cyst in the right hepatic lobe measuring 2.3 x 1.7 x 1.5 cm containing athick septation, and therefore incompletely characterized by the current study. There is simple appearing cysts noted in the left hepatic lobe measuring1.0 x 1.0 x 0.9 cm. There is documentation of hepatopetal flow in the portalvein. GALLBLADDER: There is cholelithiasis and gallbladder sludge. The gallbladder wall measures 0.2 cm in thickness. There is no definite sonographic evidence of pericholecystic fluid. BILIARY: There is no intrahepatic or extrahepatic biliary ductaldilatation. Common bile duct measures 0.4 cm in diameter. RIGHT KIDNEY: Normal size. Normal echogenicity. No solid mass or cyst.No hydronephrosis. Measures 10.5 x 4.6 x 4.4 cm. OTHER: No other significant findings. IMPRESSION: 1. Cholelithiasis and gallbladder sludge without definite sonographic evidence of cholecystitis. 2. Complicated cyst in the right hepatic lobe measuring up to 2.3 cm containing a thick septation, and therefore incompletely characterized bythe current study. Further evaluation with MRI with liver protocol isrecommended as clinically indicated. THIS IS AN ELECTRONICALLY VERIFIED FINAL REPORT 08/06/2025 10:20 AM - Electronically signed by Yamila TEE T: Report ID: [id number] Reading Location: [id number] Jorden Ghosh DO IMG US PROCEDURES Final Re sult from Last 3 Months Insurance [employer] Care Teams Crusher Loader Equipment Operator Relationship Specialty Start Date End Date Jorden Ghosh DO PCP - General Internal Medicine 07/29/25
--- OUTSIDE RECORDS SUMMARY | 2025-08-16 10:00 | XMS_ITS | Clinical Summary ---
Author Organization [facility] Address [address] [place] [address] Care Team Providers Care Congressional Aide Name Role Phone Ja Lombardo MD Primary Care Provider [phone] Source Comments [facility],non-owned Affiliates and Associated Physician Practices is amultiple site organization consisting of ambulatory clinics and hospital sitesin [place], [place], [place] and [place]. This disclosure is being madepursuant to the Care Everywhere program and may not contain all information available regarding this patient. Last updated 18.[facility] Allergies No known active allergies Medications * [...] SCREENING 1967 LIPID TESTING 1967 MAMMOGRAM 1967 HIV SCREENING 1982 HEPATITIS C SCREENING 03/25/1985 DTAP/TDAP/TD VACCINES (1 - Tdap) 1986 HEPATITIS B VACCINE (1 of 3 - 19+ 3-dose series) 1986 PAP SMEAR 1988 PNEUMOCOCCAL VACCINE 50+ (1 of 1 - PCV) 2017 ZOSTER VACCINE (1 of 2) 2017 DEPRESSION SCREENING 11/11/2024 COVID-19 VACCINE (1 - 2023-2 5 season) 2025 INFLUENZA VACCINE (#1) 2025 8, 07/17/2017 HIB VACCINE Aged Out No longer [...] patient's age to complete [place] [address] ANTH SELF PAY NO INSURANCE Member Subscriber Plan / Payer (Ef fective for All Dates) Name:Julita Mckeon Member ID:Not on file Relation to Subscriber:Not on file Name:JULITA MCKEON Subscriber ID:Not on file (Home) Address: [address] [place] [address] [place] [address] Payer ID:Not on file Group ID:Not on file Type:Self Pay Address: [place], [place] [employer] Care Teams Congressional Aide Relationship Specialty Start Date End Date Ja Lombardo MD [address] [place] [address] PCP - General Internal Medicine 07/17/17
--- OUTSIDE RECORDS SUMMARY | 2025-08-16 10:00 | XMS_ITS | Encounter Summary ---
Author Organization [facility] Address [address] [address] Care Team Providers Care Battery Container Finishing Hand Name Role Phone Ja Lombardo MD Primary Care Provider [phone] Jorden Ghosh DO Primary Care Provider [phone] Encounter Details Date Type Department Care Team (Late st Contact Info) Description 03/22/2017 Orders Only [facility] ProviderLuis MD [address] [place] [address] Social History Tobacco Use Types Packs/Day Years Used Date Smoking Tobacco: Never Assessed Comments Unknown Sex and Gender Information Value Date Recorded Sex Assigned at Not on file Legal Sex Female 4:16 PM CDT Gender Identity Not on file Sexual Orientation Not on file documented as of this encounter Plan of Treatment Not on file documented as of this encounter Procedures Procedure Name Priority Date/Time Associated Diagnosis Comments CARDIOLOGY REPORT 03/22/2017 documented in this encounter Results * CARDIOLOGY REPORT (03/22/2017) Anatomical Region Laterality Modality Other Narrative 03/22/2017 Ordered by an unspecified provider. Historical Provider [facility] MARY LOU JOHN Final Result documented in this encounter Visit Diagnoses Not on filedocumented in this encounter Care Teams Battery Container Finishing Hand Relationship Specialty Start Date End Date Ja Lombardo MD [address] [place] [address] PCP - General 03/21/17 07/28/25 Jorden Ghosh DO [address] [place] [address] PCP - General Internal Medicine 07/29/25 documented as of this encounter
[2025-08-16 10:15] LABS: Alanine Aminotransferase 23 U/L (6-35); Albumin Level 4.4 g/dL (3.5-5.1); Alkaline Phosphatase 72 U/L (38-126); Anion Gap 8 mmol/L (4-12); Aspartate Amino Transferase 33 U/L (14-36); Bilirubin,Total 0.9 mg/dL (0.2-1.3); Blood Urea Nitrogen 12 mg/dL (7-17); Calcium 8.9 mg/dL (8.4-10.2); Carbon Dioxide 27 mmol/L (22-30); Chloride 102 mmol/L (98-107); Estimated Glomerular Filt Rate > 60; Glucose 134 mg/dL (65-110); Potassium 4.3 mmol/L (3.4-5.0); Sodium 137 mmol/L (137-145); Total Protein 7.6 g/dL (6.3-8.2)
[2025-08-16 10:28] LABS: Iron 190 ug/dL (37-170)
[2025-08-16 10:38] LABS: Percent Iron Saturation 74 % (20-50)
[2025-08-16 11:10] LABS: Ferritin 96.50 ng/mL (11.1-264)
[2025-08-16 11:26] LABS: Vitamin B12 299.0 pg/mL (239-931)
[2025-08-18 16:08] LABS: ANA by IFA Rfx Titer/Pattern Negative (.)
== END 2025-08-16 09:16 | disposition home or self-care (01) ==
LOC: ANHLAB 09:16
PROVIDERS: PCP Internal Medicine; Visit Provider Internal Medicine Hematology & Oncology
DX: E83.110 Hereditary hemochromatosis (principal); D72.819 Decreased white blood cell count, unspecified
CPT/HCPCS: 36415; 80053; 82607; 82728; 82746; 83540; 83550; 85025; 86038

== ENCOUNTER 2025-08-24 12:54 | Outpatient (CLI) | payer OTHER, SELFPAY ==
--- NOTE | ~2025-08-24 | US_ITS ---
EXAMINATION: US transvaginal, 08/24/2025 12:56 CDT HISTORY: Check endometrial stripe Comparison: None Technique: Mao-scale and color Doppler images were obtained. Findings: Uterus: Uterus anteverted 6.6 x 2.7 x 3.3 cm, fundal fibroid 1.8 x 1 cm, anterior uterine body fibroid 1.3 x 1.3 cm. . Endometrium 4 mm. Right Ovary:Right ovary not visualized. Left Ovary: Left ovary not visualized. Free Fluid: None Impression: Endometrium detailed above. Probable fibroids. Reviewed, dictated and finalized at location P. Impression: Endometrium detailed above. Probable fibroids.
== END 2025-08-24 12:55 | disposition home or self-care (01) ==
LOC: MICIMG 12:55
PROVIDERS: PCP Nurse Practitioner; Visit Provider Nurse Practitioner
DX: N95.0 Postmenopausal bleeding (principal)
CPT/HCPCS: 76830

== ENCOUNTER 2025-09-06 12:48 | Outpatient (CLI) | payer OTHER, SELFPAY ==
--- NOTE | ~2025-09-06 | MR_ITS ---
EXAMINATION: MR abdomen wo/w con DATE: 09/06/2025 13:47 INDICATION: Other specified diseases of liver. Hepatic cyst. TECHNIQUE: Magnetic resonance imaging (MRI) of the abdomen was performed without and with 14 mL MultiHance intravenous contrast. COMPARISON: None. FINDINGS: There are cysts in the liver measuring up to 2.8 cm. There are gallstones in the gallbladder which is normal in size. The spleen, pancreas, adrenal glands, and kidneys are normal. There are no dilated loops of bowel. There are no pathologically enlarged lymph nodes. There is no free intraperitoneal fluid. IMPRESSION: 1. Benign cysts in the liver. 2. Cholelithiasis. Reviewed, dictated and finalized at location E.
== END 2025-09-06 12:49 | disposition home or self-care (01) ==
LOC: MICIMG 12:49
PROVIDERS: PCP Internal Medicine; Visit Provider Internal Medicine
DX: K76.89 Other specified diseases of liver (principal); K80.20 Calculus of gallbladder without cholecystitis without obstruction
CPT/HCPCS: 74183; A9577

== ENCOUNTER 2025-09-13 08:54 | Outpatient (CLI) | payer OTHER, SELFPAY ==
[2025-09-13 09:12] LABS: Hematocrit 39.2 % (37.0-47.0); Hemoglobin 13.3 g/dL (12.0-15.0); Mean Corpuscular HGB Conc 33.9 g/dl (32-36); Mean Corpuscular Hemoglobin 31.8 pg (26-34); Mean Corpuscular Volume 93.8 fl (80-100); Platelet Count Result 207 k/mm3 (150-375); Red Blood Count 4.18 M/mm3 (4.2-5.4); White Blood Count 3.9 K/mm3 (4.5-10.0)
--- OUTSIDE RECORDS SUMMARY | 2025-09-13 09:17 | XMS_ITS | Clinical Summary ---
Author Organization [facility] Address [facility] [place] [address] Care Team Providers Care Medical Manager Name Role Phone Jorden Ghosh DO Primary Care Provider Encounters Date Type Department Care Team Description 08/04/2025 9:04 AM CDT - 08/04/2025 11:59 PM CDT Hospital Encounter [id number] [place] [address] Disorder of iron metabolism, unspecified; Abnormal [...] Yamila Gutierrez D.O. PS T: Report ID: [id number] Reading Location: [id number] Procedure Note Yamila Gutierrez DO - 08/06/2025 [...] signed by Yamila TEE T: Report ID: [id number] Reading Location: [id number] Jorden Ghosh DO IMG US PROCEDURES Final Result from Last 3 Months Insurance [employer] Care Teams Medical Manager Relationship Specialty Start Date End Date Jorden Ghosh DO PCP - General Internal Medicine 07/29/25
--- OUTSIDE RECORDS SUMMARY | 2025-09-13 09:17 | XMS_ITS | Clinical Summary ---
Author Organization [facility] Josie russell [facility] Address [address] [place] [address] Care Team Providers Care Dairy Technician Name Role Phone Unavailable Primary Care Provider Unavailabl e Allergies No known active allergies Medications amLODIPine (NORVASC) 5 mg tablet Take 5 mg by mouth daily. Active lisinopriL (PRINIVIL) 20 mg tablet Take 20 mg by mouth daily. Active Climara Pro 0.045-0.015 mg/24 hr patch APPLY 1 PATCH TOPICALLY TO THE SKIN WEEKLY DIRECTED Active Active Problems No known active problems Encounters Date Type Department Care Team Description 09/08/2025 External Device Data [facility] ABSTRACTION Provider, Abstract 09/08/2025 External Device Data [facility] ABSTRACTION Provider, Abstract 09/01/2025 External Device Data [facility] ABSTRACTION Provider, Abstract 08/31/2025 External Device Data [facility] ABSTRACTION Provider, Abstract 08/25/2025 4:35 PM CDT Telephone Check Up [facility] Oncology [facility] [address] [place] [address] Enoch Roy MD Hereditary hemochromatosis (Primary Dx); Leukopenia, unspecified type 08/17/2025 External Device Data [facility] ABSTRACTION Provider, Abstract 08/17/2025 External Device Data [facility] ABSTRACTION Provider, Abstract 08/17/2025 External Device Data [facility] ABSTRACTION Provider, Abstract 08/13/2025 Abstract [facility] Oncology [facility] Hematology [facility] [address] [place] [address] Enoch Roy MD 08/11/2025 3:00 PM CDT Office Visit [facility] Oncology and Hematology [facility] [address] [place] [address] Enoch Roy MD Hereditary hemochromatosis (Primary Dx); [...] Care Team (Late st Contact Info) Description 12/30/2025 11:45 AM UNDERWATER ROBOTICIST Office Visit [facility] Oncology and Hematology [facility] [address] [place] [address] Enoch Roy MD [address] [facility] [address] [place] [address] Health Maintenance Due Date Last [...] INFLUENZA VACCINE (#1) 2025 09/03/2018, 2016 Insurance REPLACED BY [facility] OPEN ACCESS HMO
--- OUTSIDE RECORDS SUMMARY | 2025-09-13 09:17 | XMS_ITS | Encounter Summary ---
Author Organization [facility] Address [address] [address] Care Team Providers Care Cable Machine Operator Name Role Phone Ja Lombardo MD Primary Care Provider [phone] Jorden Ghosh DO Primary Care Provider Encounter Details Date Type Department Care Team (Late st Contact Info) Description 03/22/2017 Orders Only [facility] ProviderLuis MD [address] [place] [address] Social History Tobacco Use Types Packs/Day [...] on filedocumented in this encounter Care Teams Cable Machine Operator Relationship Specialty Start Date End Date Ja Lombardo MD [address] [place] [address] PCP - General 03/21/17 07/28/25 Jorden Ghosh DO [address] [place] [address] PCP - General Internal Medicine 07/29/25 documented as of this encounter
--- OUTSIDE RECORDS SUMMARY | 2025-09-13 09:17 | XMS_ITS | Clinical Summary ---
Author Organization [facility] Address [address] [facility] [place] [address] Care Team Providers Care Assistant Coach Name Role Phone Ja Lombardo MD Primary Care Provider Source Comments [facility],non-owned Affiliates and Associated Physician Practices is amultiple site organization consisting of ambulatory clinics and hospital sitesin [place], [place], [place] and [place]. This disclosure is being madepursuant to the Care Everywhere program and may not contain all information available regarding this patient. Last updated 18.[facility] Allergies No known active allergies Medications * [...] patient's age to [place] [address] ANTH SELF PAY NO INSURANCE Member Subscriber Plan / Payer (Ef fective for All Dates) Name:Julita Mckeon Member ID:Not on file Relation to Subscriber:Not on file Name:JULITA MCKEON Subscriber ID:Not on file (Home) Address: [address] [place] [address] [place] [address] Payer ID:Not on file Group ID:Not on file Type:Self Pay Address: [place], [place] [facility] Address: [facility] [address] [place] [address] Care Teams Assistant Coach Relationship Specialty Start Date End Date Ja Lombardo MD [address] [place] [address] PCP - General Internal Medicine 07/17/17
[2025-09-13 10:04] LABS: Iron 130 ug/dL (37-170)
[2025-09-13 10:13] LABS: Percent Iron Saturation 56 % (20-50)
[2025-09-13 10:45] LABS: Ferritin 100.00 ng/mL (11.1-264)
== END 2025-09-13 08:55 | disposition home or self-care (01) ==
LOC: ANHLAB 08:55
PROVIDERS: PCP Internal Medicine; Visit Provider Internal Medicine Hematology & Oncology
DX: E83.110 Hereditary hemochromatosis (principal)
CPT/HCPCS: 36415; 82728; 83540; 83550; 85027